=== PATIENT | female | born 1945 | race Caucasian/White ===

== ENCOUNTER 2018-12-17 08:19 | Inpatient (IN) | payer MEDICARE, OTHER ==
[~2018-12-17] VITALS: Ht 162.6 cm; Wt 61.7 kg
[2018-12-17 09:21] LABS: HEMATOCRIT 40.7 % (36.0-48.0); HEMOGLOBIN 13.8 g/dL (12.0-16.0); MEAN CORPUSCULAR HEMOGLOBIN 32.6 pg (28.0-32.0); MEAN CORPUSCULAR VOLUME 96.3 fL (81.0-99.0); PLATELET 227 x1000/uL (130-400); RED BLOOD CELL COUNT 4.23 mill/uL (4.2-5.4); RED CELL DISTRIBUTION WIDTH 12.9 % (11.6-14.6)
[2018-12-17 09:29] LABS: PROTHROMBIN TIME 10.1 sec (9.6-11.0)
[2018-12-17] MEDS ORDERED: PRED-276 PO (09:38)
[2018-12-17] MEDS ORDERED: CARV6.2548 MT (09:38)
[2018-12-17] MEDS ORDERED: PYRI60TA10 MT (09:38)
[2018-12-17] MEDS ORDERED: SPIR25TA6 PO (09:38)
[2018-12-17] MEDS ORDERED: FURO40TA5 MT (09:38)
[2018-12-17] MEDS ORDERED: TIMO5DRO32 EACHEYE (09:38)
[2018-12-17] MEDS ORDERED: IMIP25TA6 PO (09:38)
[2018-12-17] MEDS ORDERED: GENTAMICIN SULF 40MG/ML 2ML VIAL ONE (10:10)
[2018-12-17] MEDS ORDERED: GENTAMICIN/NS IRRIGATION 500 ML IR ONE (10:10)
[2018-12-17] MEDS ORDERED: CEFAZOLIN 1000MG PREMIX 0 ML IV ONE (10:10)
[2018-12-17] MEDS ORDERED: LIDOCAINE HCL 1% 20ML VIAL (Pyxis) INJ ONE (10:11)
[2018-12-17] MEDS ORDERED: PROPOFOL 200MG/20ML VIAL IV ONE (10:34)
[2018-12-17] MEDS ORDERED: ROCURONIUM BROMIDE 10MG/ML VIAL 5ML IV ONE ×2 (10:34→10:44)
[2018-12-17] MEDS ORDERED: GLYCOPYRROLATE 0.2 MG/ML 2ML VIAL ONE (10:34)
[2018-12-17] MEDS ORDERED: LIDOCAINE HCL/PF 1% 10 MG/ML 5ML VIAL ONE (10:34)
[2018-12-17] MEDS ORDERED: MIDAZOLAM HCL 2 MG/2 ML VIAL ONE (10:34)
[2018-12-17] MEDS ORDERED: NEOSTIGMINE METHYLSULFATE 1MG/ML 10 ML VIAL ONE (10:34)
[2018-12-17] MEDS ORDERED: FENTANYL CITRATE/PF 50MCG/ML 2ML VIAL ONE (10:34)
[2018-12-17] MEDS ORDERED: PHENYLEPHRINE HCL 10 MG/ML 1ML (IV VIAL) IV ONE (10:35)
[2018-12-17] MEDS ORDERED: SUCCINYLCHOLINE CHLORIDE 200MG/10ML IV ONE (10:35)
[2018-12-17] MEDS ORDERED: CEFAZOLIN SODIUM 1000MG/VIAL ONE (10:35)
[2018-12-17] MEDS ORDERED: SODIUM CHLORIDE 0.9% 10ML VIAL ONE (10:35)
[2018-12-17] MEDS ORDERED: EPHEDRINE SULFATE 50MG/ML VIAL ONE (10:35)
[2018-12-17] MEDS ORDERED: HYDROCORTISONE SOD SUCCINATE 250 MG/2 ML VIAL ONE (10:38)
[2018-12-17] MEDS ORDERED: DIPHENHYDRAMINE 50MG/ML VIAL ONE (10:38)
[2018-12-17] MEDS ORDERED: FAMOTIDINE 20MG/2ML VIAL IV ONE (10:39)
[2018-12-17] MEDS ORDERED: IODIXANOL 320MG/ML 100 ML BOTTLE IV ONE (10:48)
[2018-12-17] MEDS ORDERED: ONDANSETRON HCL 4MG/2ML INJ ONE (13:03)
[2018-12-17] MEDS: PYRIDOSTIGMINE BROMIDE 60MG TABLET PO SCH (16:21)
[2018-12-17 16:36] VITALS: BP 137/80
[2018-12-17 18:00] VITALS: BP 124/80
[2018-12-17 20:00] VITALS: BP 109/68
[2018-12-17] MEDS: CARVEDILOL 6.25 MG TABLET PO SCH (20:52)
[2018-12-17 22:00] VITALS: BP 103/63
[2018-12-18] VITALS (9 sets, daily range): BP systolic 90–122; BP diastolic 53–69
[2018-12-18] MEDS: HYDROCODONE/ACETAMINOPHEN 5/325MG TABLET PO PRN ×2 (02:31→13:33)
[2018-12-18 07:09] LABS: BASOPHILS % 0.5 % (0.0-2.0); EOSINOPHILS % 1.4 % (0.0-5.0); HEMATOCRIT. 36.9 % (36.0-48.0); HEMOGLOBIN. 12.5 g/dL (12.0-16.0); LYMPHOCYTES % 21.2 % (20.0-50.0); MEAN CORPUSCULAR HEMOGLOBIN 32.7 pg (28.0-32.0); MEAN CORPUSCULAR VOLUME 96.3 fL (81.0-99.0); MEAN PLATELET VOLUME 8.1 fl (7.4-10.4); MONOCYTES % 9.4 % (2.0-8.0); NEUTROPHILS % 67.5 % (40.0-76.0); PLATELET 182 x1000/uL (130-400); RED BLOOD CELL COUNT 3.83 mill/uL (4.2-5.4); RED CELL DISTRIBUTION WIDTH 13.3 % (11.6-14.6)
[2018-12-18] MEDS: CARVEDILOL 6.25 MG TABLET PO SCH (08:49)
[2018-12-18] MEDS: PYRIDOSTIGMINE BROMIDE 60MG TABLET PO SCH ×2 (08:49→13:18)
[2018-12-18] MEDS ORDERED: TIMOLOL MALEATE 0.5% OPHTH DROPS 5ML EACHEYE SCH (09:00)
[2018-12-18] MEDS ORDERED: PREDNISOLONE 15 MG/5 ML ORAL SYRINGE PO SCH ×2 (09:00→12:00)
[2018-12-18] MEDS ORDERED: INFLUENZA VIRUS VACCINE(AFLURIA) 0.5ML SYR IM ONE (09:00)
[2018-12-18] MEDS ORDERED: IMIPRAMINE HCL 10 MG PO SCH ×2 (09:00→21:00)
[2018-12-18] MEDS ORDERED: SPIRONOLACTONE 25MG TABLET PO SCH (09:00)
[2018-12-18] MEDS ORDERED: FUROSEMIDE 40MG TABLET PO SCH (09:00)
[2018-12-19] MEDS ORDERED: NEOMY SULF/BACITRAC ZN/POLY OINT 28GM TOP SCH (09:00)
== END 2018-12-18 17:54 | disposition home or self-care (01) | DRG 161 ==
LOC: CCL 08:19 → 3WST 08:20
PROVIDERS: ADMIT Internal Medicine Clinical Cardiac Electrophysiology; ATTEND Internal Medicine Clinical Cardiac Electrophysiology
PROC: 0JH609Z Insertion of Cardiac Resynchronization Defibrillator Pulse Generator into Chest Subcutaneous Tissue and Fascia, Open Approach (ICD-10-PCS; principal; 2018-12-17)
PROC: 02H63KZ Insertion of Defibrillator Lead into Right Atrium, Percutaneous Approach (ICD-10-PCS; 2018-12-17)
PROC: 02HK3KZ Insertion of Defibrillator Lead into Right Ventricle, Percutaneous Approach (ICD-10-PCS; 2018-12-17)
PROC: 02HL3KZ Insertion of Defibrillator Lead into Left Ventricle, Percutaneous Approach (ICD-10-PCS; 2018-12-17)
PROC: 4A023N6 Measurement of Cardiac Sampling and Pressure, Right Heart, Percutaneous Approach (ICD-10-PCS; 2018-12-17)
PROC: B517YZZ Fluoroscopy of Left Subclavian Vein using Other Contrast (ICD-10-PCS; 2018-12-17)
DX: I42.8 Other cardiomyopathies (principal); I50.23 Acute on chronic systolic (congestive) heart failure; I95.9 Hypotension, unspecified; G70.00 Myasthenia gravis without (acute) exacerbation; I44.7 Left bundle-branch block, unspecified; I11.0 Hypertensive heart disease with heart failure; G93.0 Cerebral cysts; Z88.8 Allergy status to other drugs, medicaments and biological substances
CPT/HCPCS: 33225; 33249; 36415; 71045; 75820; 80048; 85027; 93005; 93451; 93640; 97162; 97166; 97535; C1758; C1769; C1882; C1887; C1892; C1893; C1898; C1899; C1900; J0330; J0690; J1200; J1580; J1644; J1720; J2250; J2370; J2405; J2704; J2710; J3010; J3490; Q9967